=== PATIENT | female | born 1960 | race Caucasian/White ===

== ENCOUNTER 2017-12-14 20:42 | Observation (INO) | payer BC, OTHER, SELFPAY ==
[2017-12-14] MEDS ORDERED: NA CHLORIDE 0.9% 1,000 ML ONE (21:15)
[2017-12-14] MEDS ORDERED: THIAMINE 200 MG/2 ML INJ ONE (21:15)
[2017-12-14] MEDS ORDERED: FOLIC ACID 5 MG/ML VIAL ONE (21:16)
[2017-12-14 21:20] LABS: Absolute Lymphocytes (CBC) 1.8 K/uL (0.7-4.9); Absolute Monocytes 0.4 K/uL (0.1-1.3); Absolute Neutrophil 5.3 K/uL (1.8-8.0); Basophils % 0.6 % (0-1.3); Eosinophils % 1.1 % (0-4.4); Hematocrit 43.6 % (36.0-45.0); Lymphocytes % 23.5 % (15.3-44.8); MCH 29.4 pg (27.0-35.0); MPV 9.2 fL (7.6-11.3); Monocytes % 5.5 % (3.3-12.3); RBC Red Blood Cell Count 4.79 M/uL (3.86-4.86)
[2017-12-14 21:30] LABS: Bicarbonate 19 mEq/L (21-31); Glucose Level 106 mg/dL (65-120); Potassium 4.6 mEq/L (3.6-5.0); Sodium Level 139 mEq/L (135-145)
[2017-12-14 21:36] LABS: ALT/SGPT 18 IU/L (10-60); AST/SGOT 20 IU/L (10-42); Albumin 4.3 g/dL (3.2-5.5); Alkaline Phosphatase 102 IU/L (42-121); BUN Blood Urea Nitrogen 25 mg/dL (6-20); Bilirubin Direct 0.1 mg/dL (0-0.2); Bilirubin Total 0.4 mg/dL (0.3-1.2); Protein, Total 7.7 g/dL (6.0-8.3)
[2017-12-14 21:38] LABS: Alcohol Serum/Plasma < 10 mg/dl; Salicylates Level < 4.0 mg/dl (<30)
--- NOTE | 2017-12-14 21:39 | RAD REPORT ---
EXAM DESCRIPTION: CT - Head Brain Wo Cont - 12/14/2017 9:29 pm CLINICAL HISTORY: Altered consciousness. COMPARISON: None. TECHNIQUE: All CT scans are performed using dose optimization technique as appropriate and may inclu de automated exposure control or mA/KV adjustment according to patient size. FINDINGS: No intracranial hemorrhage, hydrocephalus or extra-axial fluid collection.No areas of brai n edema or evidence of midline shift. The paranasal sinuses and mastoids are clear. The calvarium is intact. IMPRESSION: No acute intracranial abnormality.
--- NOTE | 2017-12-14 21:43 | RAD REPORT ---
EXAM DESCRIPTION: RAD - Chest Single View - 12/14/2017 9:32 pm CLINICAL HISTORY: Chest pain, altered consciousness. COMPARISON: None. FINDINGS: Portable technique limits examination quality. The lungs are grossly clear. The heart is normal in size. No displaced fractures. IMPRESSION: No acute intrathoracic process suspected.
[2017-12-14 21:46] LABS: Protime INR 0.91
[2017-12-14 22:02] LABS: CKMB Creatine Kinase MB 3.7 ng/ml (0.3-4.0)
[2017-12-14 22:46] LABS: Barbiturates NEGATIVE; Benzodiazepines NEGATIVE; Cocaine NEGATIVE; METHAMPHETAM NEGATIVE; Opiates NEGATIVE; Phencyclidine NEGATIVE; THC Cannibis NEGATIVE
[2017-12-14 23:05] LABS: Urine Blood NEGATIVE (NEG); Urine Glucose NEGATIVE (NEG); Urine Protein NEGATIVE (NEG); Urine pH 5.5 (5.0-7.0)
--- NOTE | 2017-12-15 00:18 | EDPHYS ---
Physician Documentation [facility] Name: Erna Momin Age: 57 yrs Sex: Female : 1960 Arrival Date: 12/14/2017 Time: 20:43 Bed 3 Private MD: ED Physician Alexis Huynh HPI: 12/14 21:11 This 57 yrs old Female presents to ER via Unassigned with complaints of kaitlin Possible Overdose. 21:11 The patient presents to the emergency department with a possible poisoning, unk. kaitlin Context: unk. Associated signs and symptoms: The patient has no apparent associated signs or symptoms. Severity of symptoms: At their worst the symptoms were moderate in the emergency department the symptoms are unchanged. The patient has not experienced similar symptoms in the past. Historical: - Allergies: 21:23 Sulfa (Sulfonamide Antibiotics); tl2 - Home Meds: 21:23 thyroid (pork) oral .5 GR oral once daily [Active]; gabapentin 300 mg oral cap 1 cap 3 tl2 times per day [Active]; benazepril 40 mg oral tab 1 tab once daily [Active]; Nitrostat 0.4 mg SL subl 1 tab [Active]; atenolol 25 mg Oral tab 1 tab 2 times per day [Active]; hydrochlorothiazide 12.5 mg Oral tab 1 tab once daily [Active]; omeprazole 20 mg Oral cpDR 1 cap once daily [Active]; - PMHx: 21:23 Hypertension; neuropathy; Hypothyroidism; Myocardial infarction; tl2 - PSHx: 21:23 Heart stents; tl2 - Immunization history:: Adult Immunizations up to date. - Social history:: Smoking status: Patient uses tobacco products, smokes one pack cigarettes per day. - Family history:: not pertinent. ROS: 21:11 Constitutional: Negative for fever, chills, and weight loss, Eyes: Negative for injury, kaitlin pain, redness, and discharge, ENT: Negative for injury, pain, and discharge, Neck: Negative for injury, pain, and swelling, Cardiovascular: Negative for chest pain, palpitations, and edema, Respiratory: Negative for shortness of breath, cough, wheezing, and pleuritic chest pain, Abdomen/GI: Negative for abdominal pain, nausea, vomiting, diarrhea, and constipation, Back: Negative for injury and pain, : Negative for injury, bleeding, discharge, and swelling, MS/Extremity: Negative for injury and deformity, Skin: Negative for injury, rash, and discoloration, Psych: Negative for depression, anxiety, suicide ideation, homicidal ideation, and hallucinations, Allergy/Immunology: Negative for hives, rash, and allergies, Endocrine: Negative for neck swelling, polydipsia, polyuria, polyphagia, and marked weight changes, Hematologic/Lymphatic: Negative for swollen nodes, abnormal bleeding, and unusual bruising. 21:11 Neuro: Positive for altered mental status, weakness. Exam: 21:11 Constitutional: This is a well developed, well nourished patient who is awake, alert, kaitlin and in no acute distress. Head/Face: Normocephalic, atraumatic. Eyes: Pupils equal round and reactive to light, extra-ocular motions intact. Lids and lashes normal. Conjunctiva and sclera are non-icteric and not injected. Cornea within normal limits. Periorbital areas with no swelling, redness, or edema. ENT: Nares patent. No nasal discharge, no septal abnormalities noted. Tympanic membranes are normal and external auditory canals are clear. Oropharynx with no redness, swelling, or masses, exudates, or evidence of obstruction, uvula midline. Mucous membranes moist. Neck: Trachea midline, no thyromegaly or masses palpated, and no cervical lymphadenopathy. Supple, full range of motion without nuchal rigidity, or vertebral point tenderness. No Meningismus. Chest/axilla: Normal chest wall appearance and motion. Nontender with no deformity. No lesions are appreciated. Cardiovascular: Regular rate and rhythm with a normal S1 and S2. No gallops, murmurs, or rubs. Normal PMI, no JVD. No pulse deficits. Respiratory: Lungs have equal breath sounds bilaterally, clear to auscultation and percussion. No rales, rhonchi or wheezes noted. No increased work of breathing, no retractions or nasal flaring. Abdomen/GI: Soft, non-tender, with normal bowel sounds. No distension or tympany. No guarding or rebound. No evidence of tenderness throughout. Back: No spinal tenderness. No costovertebral tenderness. Full range of motion. Female : Normal external genitalia. Skin: Warm, dry with normal turgor. Normal color with no rashes, no lesions, and no evidence of cellulitis. MS/ Extremity: Pulses equal, no cyanosis. Neurovascular intact. Full, normal range of motion. Psych: Awake, alert, with orientation to person, place and time. Behavior, mood, and affect are within normal limits. 21:11 Neuro: Orientation: is normal, appropriate for stated age, no acute changes, Mentation: slow to respond, Memory: is normal, appropriate for stated age, no acute changes, Cerebellar function: is grossly normal, Motor: moves all fours, Sensation: is normal, no obvious gross deficits, appropriate Gait: not tested. Babinski testing is normal. Vital Signs: 21:00 BP 159 / 94; Pulse 83; Resp 18; Temp 97.3; Pulse Ox 100% on R/A; Weight 72.57 kg; tl2 Height 5 ft. 3 in. (160.02 cm); Pain 0/10; 22:28 BP 146 / 81; Pulse 85; Resp 20; Pulse Ox 99% on R/A; tl2 23:27 BP 152 / 111; Pulse 73; Resp 18; Pulse Ox 100% on R/A; tl2 12/15 01:36 BP 177 / 93; Pulse 76; Resp 16; Pulse Ox 99% on R/A; Pain 0/10; tl1 12/14 21:00 Body Mass Index 28.34 (72.57 kg, 160.02 cm) tl2 MDM: 12/14 20:50 Patient medically screened. [facility] 21:13 Data reviewed: vital signs, nurses notes, lab test result(s), EKG, radiologic studies, [facility] CT scan, plain films. 12/14 20:55 Order name: Acetaminophen; Complete Time: 22: [facility] 12/14 20:55 Order name: Basic Metabolic Panel; Complete Time: 22: [facility] 12/14 20:55 Order name: CBC with Diff; Complete Time: 22: [facility] 12/14 20:55 Order name: ETOH Level; Complete Time: 22: [facility] 12/14 20:55 Order name: Hepatic Function; Complete Time: 22: [facility] 12/14 20:55 Order name: PT-INR; Complete Time: 22:09 [facility] 12/14 20:55 Order name: Ptt, Activated; Complete Time: 22: [facility] 12/14 20:55 Order name: Salicylate; Complete Time: 22: [facility] 12/14 20:55 Order name: Urine Drug Screen; Complete Time: 00:13 1 12/14 21:11 Order name: BNP; Complete Time: 00:13 [facility] 12/14 21:11 Order name: Ckmb; Complete Time: 22:09 [facility] 12/14 21:11 Order name: CPK; Complete Time: 22:09 [facility] 12/14 21:11 Order name: Magnesium; Complete Time: 22:09 [facility] 12/14 21:11 Order name: Troponin (emerg Dept Use Only); Complete Time: 22: [facility] 12/14 20:55 Order name: EKG; Complete Time: 20:55 [facility] 12/14 20:55 Order name: EKG - Nurse/Tech; Complete Time: 20:55 [facility] 12/14 20:55 Order name: IV Saline Lock; Complete Time: 20:56 [facility] 12/14 20:55 Order name: Labs collected and sent; Complete Time: 20:56 [facility] 12/14 20:55 Order name: Urine Dipstick-Ancillary (obtain specimen); Complete Time: 22:27 [facility] 12/14 21:11 Order name: XRAY Chest (1 view); Complete Time: 22:09 [facility] 12/14 21:11 Order name: Cardiac monitoring; Complete Time: 21:29 [facility] 12/14 21:11 Order name: O2 Per Protocol; Complete Time: 21:28 [facility] 12/14 21:11 Order name: O2 Sat Monitoring; Complete Time: 21:28 [facility] 12/14 21:11 Order name: Urine Culture [facility] 12/14 21:11 Order name: CT Head Brain wo Cont; Complete Time: 22:09 [facility] 12/14 22:36 Order name: Urine Dipstick--Ancillary (enter results); Complete Time: 00:13 2 12/14 22:29 Order name: Straight Cath; Complete Time: 22:29 tl2 Administered Medications: 21:18 Drug: foLIC Acid 1 mg Route: IVPB; Site: right antecubital; tl1 23:21 Follow up: IV Status: Completed infusion tl1 21:18 Drug: NS 0.9% 1000 ml Route: IV; Rate: 1000 ml; Site: right antecubital; tl1 23:21 Follow up: IV Status: Completed infusion tl1 21:19 Drug: Thiamine 100 mg Route: IV; Rate: bolus; Site: right antecubital; tl1 23:21 Follow up: IV Status: Completed infusion tl1 12/15 00:24 Drug: Aspirin 81 mg Route: PO; tl1 01:37 Follow up: Response: No adverse reaction; No change in condition tl1 Disposition: 12/15/17 00:16 Hospitalization ordered by Bibiana Adams for Observation. Preliminary diagnosis is Altered mental status, unspecified. - Bed requested for Telemetry/MedSurg (observation). - Status is Observation. tl1 - Condition is Stable. - Problem is new. - Symptoms have improved. UTI on Admission? No Signatures: Dispatcher [employer] EDHilda Swan RN Alexis Bullock MD MD cha Lasagna, Tonya, RN RN tl1 Sammie Bernal RN RN tl2 Corrections: (The following items were deleted from the chart) 01:04 00:16 Hospitalization Ordered by Bibiana Adams MD for Observation. Preliminary kl diagnosis is Altered mental status, unspecified. Bed requested for Telemetry/MedSurg (observation). Status is Observation. Condition is Stable. Problem is new. Symptoms have improved. UTI on Admission? No. kaitlin 02:54 01:04 12/15/2017 00:16 Hospitalization Ordered by Bibiana Adams MD for Observation. tl1 Preliminary diagnosis is Altered mental status, unspecified. Bed requested for Telemetry/MedSurg (observation). Status is Observation. Condition is Stable. Problem is new. Symptoms have improved. UTI on Admission? No. kl
--- NOTE | 2017-12-15 00:18 | ER ---
Nurse's Notes [facility] Name: Erna Momin Age: 57 yrs Sex: Female : 1960 Arrival Date: 12/14/2017 Time: 20:43 Bed 3 Private MD: Diagnosis: Altered mental status, unspecified Presentation: 12/14 21:16 Presenting complaint: EMS states: found pt in bed and he was unable to wake her tl2 up. EMS woke her up with sternal rubs. Pt was very drowsy. Pt was responsive to verbal stimuli in triage but stated she did not know why she felt so drowsy and denied taking any abnormal medications. Pt AOx4 and could answer questions appropriately. Transition of care: patient was not received from another setting of care. Onset of symptoms was December 14, 2017 at 19:00. Initial Sepsis Screen: Does the patient meet any 2 criteria? No. Patient's initial sepsis screen is negative. Does the patient have a suspected source of infection? No. Patient's initial sepsis screen is negative. Care prior to arrival: None. 21:16 Method Of Arrival: EMS: [facility] tl2 21:16 Acuity: MARIA EUGENIA 3 tl2 Triage Assessment: 21:00 General: Appears in no apparent distress. Behavior is cooperative, appropriate for age, tl2 drowsy. Pain: Denies pain. Neuro: Level of Consciousness is awake, obeys commands, lethargic, Oriented to person, place, time, situation, Speech is normal. Cardiovascular: Denies chest pain. Respiratory: Airway is patent Respiratory effort is even, unlabored, Respiratory pattern is regular, symmetrical. GI: No signs and/or symptoms were reported involving the gastrointestinal system. : No signs and/or symptoms were reported regarding the genitourinary system. Derm: Skin is pink, warm \T\ dry. Historical: - Allergies: 21:23 Sulfa (Sulfonamide Antibiotics); tl2 - Home Meds: 21:23 thyroid (pork) oral .5 GR oral once daily [Active]; gabapentin 300 mg oral cap 1 cap 3 tl2 times per day [Active]; benazepril 40 mg oral tab 1 tab once daily [Active]; Nitrostat 0.4 mg SL subl 1 tab [Active]; atenolol 25 mg Oral tab 1 tab 2 times per day [Active]; hydrochlorothiazide 12.5 mg Oral tab 1 tab once daily [Active]; omeprazole 20 mg Oral cpDR 1 cap once daily [Active]; - PMHx: 21:23 Hypertension; neuropathy; Hypothyroidism; Myocardial infarction; tl2 - PSHx: 21:23 Heart stents; tl2 - Immunization history:: Adult Immunizations up to date. - Social history:: Smoking status: Patient uses tobacco products, smokes one pack cigarettes per day. - Family history:: not pertinent. Screenin:27 Abuse screen: Denies threats or abuse. Nutritional screening: No deficits noted. tl2 Tuberculosis screening: No symptoms or risk factors identified. Fall Risk Gait- Weak (10 pts.). Assessment: 21:00 General: see triage assessment. General:. tl2 22:28 Reassessment: Patient appears in no apparent distress at this time. No changes from tl2 previously documented assessment. Patient and/or family updated on plan of care and expected duration. Pain level reassessed. 23:27 Reassessment: Patient appears in no apparent distress at this time. Pt sleeping, awakes tl2 to verbal stimuli but still appears confused. 12/15 01:32 Reassessment: Patient and/or family updated on plan of care and expected duration. Pain tl1 level reassessed. Patient states feeling better. Patient states symptoms have improved. Neuro: Level of Consciousness is lethargic. 02:36 Reassessment: Patient appears in no apparent distress at this time. Patient and/or tl1 family updated on plan of care and expected duration. Pain level reassessed. Patient is alert, oriented x 3, equal unlabored respirations, skin warm/dry/pink. Patient states feeling better. Patient states symptoms have improved. pt is awake and alert and ambulated to the bathroom without assistance. Vital Signs: 12/14 21:00 BP 159 / 94; Pulse 83; Resp 18; Temp 97.3; Pulse Ox 100% on R/A; Weight 72.57 kg; tl2 Height 5 ft. 3 in. (160.02 cm); Pain 0/10; 22:28 BP 146 / 81; Pulse 85; Resp 20; Pulse Ox 99% on R/A; tl2 23:27 BP 152 / 111; Pulse 73; Resp 18; Pulse Ox 100% on R/A; tl2 12/15 01:36 BP 177 / 93; Pulse 76; Resp 16; Pulse Ox 99% on R/A; Pain 0/10; tl1 12/14 21:00 Body Mass Index 28.34 (72.57 kg, 160.02 cm) tl2 Vitals: 12/14 22:28 Cardiac Rhythm Assessment Regular Sinus rhythm. tl2 ED Course: 20:43 Patient arrived in ED. ds1 20:50 Alexis Huynh MD is Attending Physician. kaitlin 21:00 Arm band placed on right wrist. tl2 21:18 Triage completed. tl2 21:27 Patient has correct armband on for positive identification. Placed in gown. Bed in low tl2 position. Call light in reach. Side rails up X 1. Adult w/ patient. 21:27 Maintain EMS IV. Dressing intact. Site clean \T\ dry. Gauge \T\ site: 20 g R FA. tl 2 21:28 Sammie Bernal RN is Primary Nurse. tl2 21:29 CT Head Brain wo Cont In Process Unspecified. EDMS 21:32 X-ray completed. Portable x-ray completed in exam room. Patient tolerated procedure bb2 well. 21:32 XRAY Chest (1 view) In Process Unspecified. EDMS 22:29 Straight cath inserted, using sterile technique, 16 Fr. Specimen obtained. Returned tl2 clear yellow urine. Patient tolerated well. 12/15 00:16 Bibiana Adams MD is Hospitalizing Provider. kaitlin 01:33 No provider procedures requiring assistance completed. Patient admitted, IV remains in tl1 place. Administered Medications: 12/14 21:18 Drug: foLIC Acid 1 mg Route: IVPB; Site: right antecubital; tl1 23:21 Follow up: IV Status: Completed infusion tl1 21:18 Drug: NS 0.9% 1000 ml Route: IV; Rate: 1000 ml; Site: right antecubital; tl1 23:21 Follow up: IV Status: Completed infusion tl1 21:19 Drug: Thiamine 100 mg Route: IV; Rate: bolus; Site: right antecubital; tl1 23:21 Follow up: IV Status: Completed infusion tl1 12/15 00:24 Drug: Aspirin 81 mg Route: PO; tl1 01:37 Follow up: Response: No adverse reaction; No change in condition tl1 Outcome: 00:16 Decision to Hospitalize by Provider. kaitlin 02:37 Admitted to Med/surg accompanied by tech, via wheelchair, with chart, Report called to tl1 Jolene Gaona [employer] 02:37 Condition: good 02:37 Instructed on the need for admit. 02:54 Patient left the ED. tl1 Signatures: Dispatcher [employer] Alexis Stone MD MD cha Sanford, Demi dsMeryl Patel RN RN tl1 Sammie Bernal RN RN tl2 Hortensia Leal 2
[2017-12-15] MEDS ORDERED: ASPIRIN 81 MG CHEWABLE TABLET ONE (00:26)
--- NOTE | 2017-12-15 01:17 | P.HP ---
Certification for Inpatient Patient admitted to: Observation With expected LOS: <2 Midnights Practitioner: I am a practitioner with admitting privileges, knowledge of patient current condition, hospital course, and medical plan of care. Services: Services provided to patient in accordance with Admission requirements found in Title 42 Section 412.3 of the Code of Federal Regulations Patient History Date of Service: 12/15/17 Reason for admission: AMS History of Present Illness: Ms Peña is a 57 years old woman with history of HTN, hypothyroidism, neuropathy , CAD. Last night, she was found by her on the bed, and he was unable to wake her up. 911 was called, when EMS arrived, found the patient obtunded, very difficult to arouse. She finally responded to the sternal rub. Then she was transferred to ER. During her stay in ED, she gradually improved her mentation. At my encounter she was sleepy but easy to wake up, she states that possible took more Gabapentin my mistake. She denied any history of fever, chills, chest pain, SOB, nausea or vomiting. She also denied any focal weakness , numbness or tingling. Allergies Unable to Assess Allergy (Unverified 12/15/17 01:11) - Past Medical/Surgical History -: HTN -: CAD -: Neuropathy -: Hypotrhyroidism -: coronary stent - Family History Family History: Reviewed- Non-Contributory - Social History Smoking Status: Heavy Tobacco smoker (>10 cigarettes/day) Counseled patient to stop smoking for: less than 10 minutes CD- Drugs: No Caffeine use: Yes Place of Residence: Home Review of Systems 10-point ROS is otherwise unremarkable Physical Examination - Physical Exam General: In no apparent distress, Other (obtunded.) HEENT: Atraumatic, PERRLA, Mucous membr. moist/pink, EOMI, Sclerae nonicteric Neck: Supple, 2+ carotid pulse no bruit, No LAD, Without JVD or thyroid abnormality Respiratory: Clear to auscultation bilaterally, Normal air movement Cardiovascular: Regular rate/rhythm, Normal S1 S2 Gastrointestinal: Normal bowel sounds, No tenderness Musculoskeletal: No tenderness Integumentary: No rashes Neurological: Normal strength at 5/5 x4 extr, Normal tone, Normal affect, Abnormal speech (slurred) Lymphatics: No axilla or inguinal lymphadenopathy - Studies Laboratory Data (last 24 hrs) 12/14/17 21:00: Magnesium 2.0 12/14/17 21:00: B-Natriuretic Peptide 132 H 12/14/17 21:00: PT 10.7, INR 0.91, APTT 21.3 L 12/14/17 21:00: WBC 7.7, Hgb 14.1, Hct 43.6, Plt Count 153 12/14/17 21:00: Sodium 139, Potassium 4.6, BUN 25 H, Creatinine 0.98, Glucose 106, Total Bilirubin 0.4, AST 20, ALT 18, Alkaline Phosphatase 102 Assessment and Plan - Problems (Diagnosis) (1) Acute encephalopathy Current Visit: Yes Status: Acute (2) HTN (hypertension) Current Visit: Yes Status: Acute Qualifiers: Hypertension type: essential hypertension Qualified Code(s): I10 - Essential (primary) hypertension (3) Hypothyroidism Current Visit: Yes Status: Acute Qualifiers: Hypothyroidism type: unspecified Qualified Code(s): E03.9 - Hypothyroidism , unspecified (4) CAD (coronary artery disease) Current Visit: Yes Status: Acute Qualifiers: Coronary Disease-Associated Artery/Lesion type: [place] artery [place] vs. transplanted heart: [place] heart Associated angina: without angina Qualified Code(s): I25.10 - Atherosclerotic heart disease of [place] coronary artery without angina pectoris - Plan The patient will be admitted to the hospital due to acute encephalopathy. Lab work shows normal WBC count, no fever, normal UA, no acute infiltrate on CXR. CT head without acute abnormalities. This episode, is highly suspected to be secondary to medication overdose, possible Gabapentin. Her mentation is defetively already improved. Will continue IV normal saline, neurochecks, fall precautions. - Advance Directives Does patient have a Living Will: No Does patient have a Durable POA for Healthcare: No - Code Status/Comfort Care Code Status Assessed: Yes Code Status: Full Code
[2017-12-15] MEDS ORDERED: ACETAMINOPHEN 500 MG TAB PO PRN (02:13)
[2017-12-15] MEDS ORDERED: ONDANSETRON 4 MG/2 ML VIAL IV PRN (02:13)
[2017-12-15] MEDS: NA CHLORIDE 0.9% 1,000 ML IV SCH ×3 (03:20→20:19)
[2017-12-15 04:33] LABS: Absolute Lymphocytes (CBC) 1.9 K/uL (0.7-4.9); Absolute Monocytes 0.7 K/uL (0.1-1.3); Absolute Neutrophil 5.7 K/uL (1.8-8.0); Basophils % 0.5 % (0-1.3); Hematocrit 36.4 % (36.0-45.0); Lymphocytes % 22.3 % (15.3-44.8); MCH 29.7 pg (27.0-35.0); MCV 90.2 fL (80-100); Monocytes % 8.3 % (3.3-12.3); RBC Red Blood Cell Count 4.04 M/uL (3.86-4.86)
[2017-12-15 05:06] LABS: Albumin 3.5 g/dL (3.2-5.5); Bilirubin Total 0.4 mg/dL (0.3-1.2); Potassium 4.2 mEq/L (3.6-5.0); Protein, Total 6.3 g/dL (6.0-8.3)
--- NOTE | 2017-12-15 06:30 | EKG ---
Test Date: 2017-12-14 Test Time: 20:52:01 Plant Puller: CINTHIA MEASUREMENT RESULTS: Intervals: Rate: 79 SD: 176 QRSD: 74 QT: 374 QTc: 428 [place]: P: 62 SD: 176 QRS: 4 T: 24 INTERPRETIVE STATEMENTS: Sinus rhythm with premature atrial complexes Otherwise normal ECG No previous ECG available for comparison Electronically Signed On 12-15-17 06:29:57 CDT by Augustin Solis
[2017-12-15] MEDS: ASPIRIN PO SCH (09:00)
[2017-12-15] MEDS ORDERED: THYROID 30 MG PO SCH (09:00)
[2017-12-15] MEDS ORDERED: BENAZEPRIL HCL 40 MG PO SCH (09:00)
[2017-12-15] MEDS ORDERED: ATENOLOL 25 MG TAB PO SCH (09:00)
[2017-12-15] MEDS ORDERED: HOME MED 1 EA UNK (Omeprazole [Omeprazole] 20 MG) PO SCH (09:00)
[2017-12-15] MEDS: ACETAMINOPHEN PO SCH (09:00)
[2017-12-15] MEDS: CAFFEINE PO SCH (09:00)
[2017-12-15] MEDS ORDERED: THYROID PORK 180 MG PO SCH (09:00)
[2017-12-15] MEDS: SENOSIDES 8.6 MG TAB PO SCH (10:10)
[2017-12-15] MEDS: TICAGRELOR 90 MG TABLET PO SCH ×2 (10:10→20:17)
[2017-12-15] MEDS: ENOXAPARIN 40 MG/0.4 ML SQ SCH (10:10)
[2017-12-15] MEDS: ASPIRIN EC 81 MG TAB PO SCH (13:17)
--- NOTE | 2017-12-15 13:37 | PN ---
Date of Progress Note: 12/15/2017 Subjective: The patient is seen and examined. Chart reviewed and case discussed with RN. The patie nt's mental status is improving. Per , she is close to being back to her baseline. Review of Systems: Negative except as above. Medications: Reviewed. Physical Examination: Vital Signs: Temperature 97.3, heart rate 84, blood pressure 133/71, respirations 16, O2 96% on room air. General: Awake, alert, oriented x3. No acute distress. The patient does have some word-finding dif ficulty. CV: S1, S2. No murmurs. Regular rate and rhythm. Peripheral pulses present. Respiratory: Moving air well bilaterally. No wheezing. Gastrointestinal: Abdomen is soft, nontender, nondistended. Positive bowel sounds. Extremities: No clubbing, cyanosis, or edema. Neurologic: Cranial nerves 2 through 12 intact grossly. Muscle strength 5/5 upper and lower left ex tremities. Right upper extremity is 4+/5. Right lower extremity is 5/5 strength. Sensation intact to light touch. Laboratory Data: Sodium 142, potassium 4.2, chloride 117, CO2 of 19, BUN 21, creatinine 0.79, glucos e 85, calcium 9.6. WBC 8.5, H and H 12 and 36.4, platelets 141. UDS is negative. Urine culture is pending. Assessment And Plan: A 57-year-old female with: 1.Acute metabolic encephalopathy, likely related to gabapentin as the patient had accidentally took more than her usual dose. This medication was recently started may be the culprit in causing her alt ered mental status. However, given her word-finding difficulty and partial weakness in the right arm , stroke cannot be ruled out. Head CT scan initially was negative. Unfortunately, MRI is not availa ble over the weekend and Neurology is not call. The patient was recommended to be transferred to [facility] for higher level of care. However, the patient refused at this time. She understands the risks that she might be having an acute stroke and she understands that there is no Neurology available. She wishes to stay in this hospital and undergo prophylactic treatment. She understands that this ma y result in adverse outcome. present at the bedside, rounded with charge nurse, Gustabo. 2.Transient ischemic attack, possible rule out cerebrovascular accident. We will start on stroke gu idelines. Unfortunately, as mentioned above MRI and Neurology available. We will obtain carotid ult rasound and echocardiogram. 3.Essential hypertension. We will allow permissive hypertension due to possible stroke. 4.Hypothyroidism. We will continue home medications. 5.Coronary artery disease [place] artery and [place] heart without angina, stable. 6.Nicotine dependence with cigarette smoking, counseled. 7.Neuropathy. We will hold gabapentin at this time. Continue neuro checks. 8.Gastrointestinal and deep venous thrombosis prophylaxis with PPI and Lovenox. SA/MODL Voice ID: [id number] Report ID: [id number]
--- NOTE | 2017-12-15 15:19 | RAD REPORT ---
EXAM DESCRIPTION: MICHELLE Puga CP - 12/15/2017 3:06 pm CLINICAL HISTORY: CVA COMPARISON: None. TECHNIQUE: Real-time sonographic evaluation of both carotid systems was performed. Doppler interroga tion was performed with waveform tracing bilaterally. FINDINGS: Normal high resistance waveforms are noted in both external carotid arteries. The common c arotid arteries and internal carotid arteries show normal low resistance waveforms. Mild plaquing changes are present in the right internal carotid artery. No significant luminal narrow ing. Left carotid bulb plaquing changes are more prominent with focal calcified plaque causing some n arrowing of the vessel lumen. Peak systolic and end diastolic velocity values and the ICA/CCA ratios are in the non-hemodynamically significant range. Antegrade flow seen in both vertebral arteries. Velocity values and ratios were recorded and are retained in the patient's imaging records. IMPRESSION: Minimal right internal carotid artery atherosclerotic plaquing. Focally prominent calcif ied plaque in the left bulb. On visual inspection and based on velocity values and ratios, no significant stenosis seen.
[2017-12-15] MEDS ORDERED: ATORVASTATIN 40 MG TAB PO SCH (21:00)
[2017-12-16 04:52] LABS: Absolute Lymphocytes (CBC) 2.1 K/uL (0.7-4.9); Absolute Monocytes 0.8 K/uL (0.1-1.3); Absolute Neutrophil 6.2 K/uL (1.8-8.0); Basophils % 0.5 % (0-1.3); Hematocrit 35.5 % (36.0-45.0); Lymphocytes % 22.1 % (15.3-44.8); MCH 30.3 pg (27.0-35.0); MCV 89.4 fL (80-100); MPV 9.2 fL (7.6-11.3); Monocytes % 8.9 % (3.3-12.3); RBC Red Blood Cell Count 3.97 M/uL (3.86-4.86)
[2017-12-16 05:17] LABS: ALT/SGPT 14 IU/L (10-60); AST/SGOT 14 IU/L (10-42); Albumin 3.2 g/dL (3.2-5.5); Alkaline Phosphatase 79 IU/L (42-121); BUN Blood Urea Nitrogen 12 mg/dL (6-20); Bicarbonate 20 mEq/L (21-31); Bilirubin Total 0.7 mg/dL (0.3-1.2); Glucose Level 85 mg/dL (65-120); Potassium 3.4 mEq/L (3.6-5.0); Protein, Total 5.7 g/dL (6.0-8.3); Sodium Level 139 mEq/L (135-145)
[2017-12-16] MEDS ORDERED: THYROID 30 MG TAB PO SCH ×2 (06:00)
[2017-12-16] MEDS ORDERED: PANTOPRAZOLE 40MG TABLET PO SCH (07:30)
[2017-12-16] MEDS: NA CHLORIDE 0.9% 1,000 ML IV SCH (08:13)
[2017-12-16] MEDS: CAFFEINE PO SCH (09:00)
[2017-12-16] MEDS: TICAGRELOR 90 MG TABLET PO SCH (09:00)
[2017-12-16] MEDS ORDERED: BENAZEPRIL 20 MG TAB PO SCH (09:00)
[2017-12-16] MEDS: ASPIRIN PO SCH (09:00)
[2017-12-16] MEDS: ACETAMINOPHEN PO SCH (09:00)
[2017-12-16] MEDS: ASPIRIN EC 81 MG TAB PO SCH (09:00)
[2017-12-16] MEDS: SENOSIDES 8.6 MG TAB PO SCH (09:00)
[2017-12-16] MEDS: ENOXAPARIN 40 MG/0.4 ML SQ SCH (09:00)
--- NOTE | 2017-12-16 09:19 | RAD REPORT ---
EXAM DESCRIPTION: CT - Head Brain Wo Cont - 12/16/2017 8:47 am CLINICAL HISTORY: Alteration of consciousness/memory loss COMPARISON: November 2016 TECHNIQUE: Computed axial tomography of the head was obtained. IV contrast was not requested. All CT scans are performed using dose optimization technique as appropriate and may include automated exposure control or mA/KV adjustment according to patient size. FINDINGS: An intracranial bleed is not seen . The ventricles are normal in caliber. No extra-axial fluid collection is noted. Fluid within the sinuses/ mastoids is not seen. IMPRESSION: No acute intracranial abnormality is seen. If patient's symptoms persist MRI of the bra in would be recommended.
--- NOTE | 2017-12-16 15:09 | DS ---
Date of Discharge: 12/16/2017 Admitting Diagnoses: 1.Acute metabolic encephalopathy. 2.Essential hypertension. 3.Hypothyroidism. 4.Coronary artery disease [place] artery and [place] heart without angina. Discharge Diagnoses: 1.Acute metabolic encephalopathy, resolved, likely secondary to gabapentin overdose. 2.Possible transient ischemic attack, rule out cerebrovascular accident. Repeat head CT scan negati ve. The patient will need outpatient MRI and Neurology evaluation. 3.Mild carotid artery plaquing. We will continue with statin. 4.Essential hypertension, stable. 5.Hypothyroidism, stable. 6.Coronary artery disease [place] artery and [place] heart without angina, stable. 7.Nicotine dependence with cigarette smoking, counseled. 8.Neuropathy. Discontinue gabapentin. Hospital Course: The patient is a 57-year-old female who came into the hospital for altered mental s tatus, difficult to arouse, obtunded. The patient gradually started waking up. It is possible that the patient took more gabapentin by mistake, which is a new medication for her, for her neuropathy. The patient initially had improvement in her mental status, however, still has some word-finding diff iculty, had some asymmetric strength in her right upper extremity. The patient was attempted to be t ransferred to [facility] for a higher level of care as Neurology and MRI services unavail able. The patient and , however, declined transfer. They understand the risks associated wit h delaying treatment and not having Neurology and MRI evaluation. The patient understood the risks a nd wished to stay. The patient was awake, alert, and oriented at the time of the decision. also present at the bedside. Charge nurse also present. The patient had improvement in her mental s tatus and condition. Her word-finding difficulty resolved. She was much more alert and is able to g et up and move around. She did not have any further weakness in her upper extremity. She felt that her gown initially was holding her arm back during the examination. Her strength was symmetric. The patient had repeat head CT scan done, initial one was negative. Repeat was also negative. The wallace ent had carotid ultrasound done, which did show some plaquing in the bulb, however, no hemodynamicall y significant stenosis and minimal right internal carotid plaquing. The patient was started on stati n and aspirin. The patient also on Brilinta for heart disease. Echocardiogram unable to be done due to the weekend. The patient was then cleared for discharge as she was able to ambulate without any assist. Has resolution of her symptoms. She understands that she needs to follow up with the neurol ogist as an outpatient next week for MRI of the brain to rule out CVA, and to discontinue her gabapen tin altogether. She may need a different medication for her neuropathy, which at this time is not si gnificantly bothering her at all. The patient was then discharged home in a stable condition. Activity: As tolerated. Medications: As per medication reconciliation list. Followup: Follow up with primary care physician in 2 days. Follow up with neurologist, Dr. Hoang in 1 week. Return to ER for worsening condition. Diet: Heart healthy. Physical Examination: General: Awake, alert, oriented, no acute distress. CV: S1, S2. No murmurs. Respiratory: Moving air well bilaterally. No wheezing. Abdomen: Soft, nontender, nondistended. Positive bowel sounds. Extremities: No clubbing, cyanosis, edema. Neurologic: Nonfocal. Cranial nerves 2-12 intact grossly. Upper and lower extremity strength 5/5 b ilaterally. Speech is normal. No word-finding difficulty. No facial asymmetry. SA/MODL Voice ID: [id number] Report ID: [id number]
== END 2017-12-16 11:11 | disposition home or self-care (01) ==
LOC: ER 20:42 → ERHOLD 12-15 00:45 → 2ND 12-15 02:08
PROVIDERS: ADMIT Internal Medicine; ATTEND Internal Medicine
DX: G93.41 Metabolic encephalopathy (principal); I65.29 Occlusion and stenosis of unspecified carotid artery; I10 Essential (primary) hypertension; E03.9 Hypothyroidism, unspecified; I25.10 Atherosclerotic heart disease of native coronary artery without angina pectoris; F17.210 Nicotine dependence, cigarettes, uncomplicated; G62.9 Polyneuropathy, unspecified
CPT/HCPCS: 36415; 51702; 70450; 71045; 80048; 80053; 80076; 80307; 80320; 80329; 81003; 82550; 82553; 83735; 83880; 84132; 84484; 85025; 85610; 85730; 87086; 87088; 93005; 93880; 96361; 96365; 96368; 99285; G0378; J1650; J3411; J7030

== ENCOUNTER 2025-03-08 21:27 | Emergency (ER) | payer OTHER ==
[2025-03-08 23:10] LABS: Sqamous Epithelial None Seen /HPF (None Seen); Urine Culture Reflex Order REFLEXED; Urine Microscopic Reflex YN NO UMIC
[2025-03-08 23:20] LABS: Absolute Lymphocytes (CBC) 1.8 K/uL (0.7-4.9); Hematocrit 30.2 % (36.0-45.0); Hemoglobin 10.3 g/dL (12.0-15.0); MCH 32.5 pg (27.0-35.0); MCHC 34.0 g/dL (32.0-36.0); MCV 95.6 fL (80-100); MPV 9.2 fL (7.6-11.3); Nucleated RBC Absolute Count 0.0 (0-0); Nucleated Red Blood Cells % 0.0 % (0-0); RBC Red Blood Cell Count 3.17 M/uL (3.86-4.86); White Blood Count 7.30 thou/uL (4.3-10.9)
[2025-03-08 23:31] LABS: ALT/SGPT 17.0 U/L (13-56); AST/SGOT 13.0 U/L (15-37); Albumin 3.3 g/dL (3.4-5.0); Albumin/Globulin Ratio 1.0 (1.1-1.8); Alkaline Phosphatase 59.0 U/L (45-117); Anion Gap 7.0 mEq/L (5.0-15.0); BUN Blood Urea Nitrogen 21.0 mg/dL (7-18); Globulin 3.2 g/dL (2.3-3.5); Glucose Level 124.0 mg/dL (74-106); Potassium 4.0 mEq/L (3.5-5.1)
--- NOTE | 2025-03-09 01:20 | ER ---
Nurse's Notes [facility] Name: Erna Momin Age: 64 yrs Sex: Female : 1960 Arrival Date: 03/08/2025 Time: 21:27 Bed 2 Private MD: Diagnosis: Hematuria, unspecified;UTI/ Urinary tract infection, site not specified Presentation: 03/08 21:58 Chief complaint: Patient states: I have been urinating blood with clots for the past 3 jb4 weeks and today I could not urinate. I think there is a clot blocking it. Coronavirus screen: At this time, the client does not indicate any symptoms associated with coronavirus-19. Ebola Screen: No symptoms or risks identified at this time. Initial Sepsis Screen: Does the patient meet any 2 criteria? No. Patient's initial sepsis screen is negative. Does the patient have a suspected source of infection? No. Patient's initial sepsis screen is negative. Risk Assessment: Do you want to hurt yourself or someone else? Patient reports no desire to harm self or others. Onset of symptoms was March 08, 2025. Transition of care: patient was not received from another setting of care. 21:58 Method Of Arrival: Ambulatory jb4 21:58 Acuity: MARIA EUGENIA 2 jb4 Historical: - Allergies: 21:59 Sulfa (Sulfonamide Antibiotics); jb4 22:03 mycins; jb4 22:03 Zantac; jb4 22:03 Codeine; jb4 22:03 left bundle branche block; jb4 - PMHx: 21:59 Hypothyroidism; Myocardial infarction; Hypertension; neuropathy; jb4 - PSHx: 22:03 ; 2 heart stents; lap band; jb4 - Immunization history:: Adult Immunizations up to date. - Infectious Disease History:: Denies. - Social history:: Smoking status: Patient reports the use of cigarette tobacco products, smokes one pack cigarettes per day. Screenin/11 00:45 [facility] ED Fall Risk Assessment (Adult) History of falling in the last 3 months, cp4 including since admission No falls in past 3 months (0 pts) Confusion or Disorientation No (0 pts) Intoxicated or Sedated No (0 pts) Impaired Gait No (0 pts) Mobility Assist Device Used No (0 pt) Altered Elimination No (0 pt) Score/Fall Risk Level 0 - 2 = Low Risk Oriented to surroundings, Maintained a safe environment, Assessed \T\ reinforced patient's understanding of fall precautions, Hourly rounding (assess needs \T\ fall precautionary measures) done. Abuse screen: Denies threats or abuse. Denies injuries from another. Nutritional screening: No deficits noted. Tuberculosis screening: No symptoms or risk factors identified. Assessment: 00:45 General: Appears in no apparent distress. uncomfortable, Behavior is calm, cooperative, cp4 appropriate for age. Pain: Denies pain. Neuro: Level of Consciousness is awake, alert, obeys commands, Oriented to person, place, time, situation. Cardiovascular: Patient's skin is warm and dry. Respiratory: Airway is patent Respiratory effort is even, unlabored. GI: No signs and/or symptoms were reported involving the gastrointestinal system. : Urine is rory blood, Reports inability to void. EENT: No signs and/or symptoms were reported regarding the EENT system. Derm: No signs and/or symptoms reported regarding the dermatologic system. Musculoskeletal: No signs and/or symptoms reported regarding the musculoskeletal system. Vital Signs: 03/08 22:05 BP 124 / 79; Pulse 86; Resp 16; Temp 97.4(O); Pulse Ox 100% on R/A; Weight 68.95 kg jb4 (R); Height 5 ft. 2 in. ; 03/09 00:47 BP 109 / 68; Pulse 72; Resp 18; Pulse Ox 100% ; cp4 01:30 BP 121 / 79; Pulse 81; Resp 18; Pulse Ox 100% ; cp4 03/08 22:05 Body Mass Index 27.80 (68.95 kg, 157.48 cm) jb4 ED Course: 03/08 21:37 Patient arrived in ED. jj6 21:39 [facility]C [facility] kb 21:39 Néstor Noriega DO is Attending Physician. kb 21:59 Triage completed. jb4 21:59 Arm band placed on right wrist. jb4 22:48 Missed attempt(s): 20 gauge in right forearm. Bleeding controlled, band aid applied, sa1 catheter tip intact. 22:50 Inserted saline lock: 20 gauge forearm, using aseptic technique. Blood collected. sa1 Flushed with 10 mL NS. 22:58 Bibiana De La Rosa is Primary Nurse. cp4 23:19 CBC with Diff Sent. sa1 23:19 CMP Sent. sa1 23:33 Abdomen In Process Unspecified. EDMS 03/09 00:45 Placed in gown. Bed in low position. Call light in reach. Side rails up X2. cp4 00:45 No provider procedures requiring assistance completed. 3-way catheter inserted, using cp4 sterile technique, 16 Fr. 01:52 Provided Education on: uti. cp4 01:52 3-way catheter Returned bloody urine. Removed 3-way catheter. intact, bleeding cp4 controlled, No redness/swelling at site. Pressure dressing applied. Administered Medications: 01:52 Drug: Amoxicillin-Clavulanate PO 875 mg PO once Route: PO; cp4 01:52 Follow up: Response: No adverse reaction cp4 Medication: 00:45 VIS not applicable for this client. cp4 Outcome: 01:20 Discharge ordered by . kb 01:52 Discharged to home ambulatory, cp4 01:52 Condition: stable 01:52 Discharge instructions given to patient, family, Instructed on discharge instructions, follow up and referral plans. medication usage, Demonstrated understanding of instructions, follow-up care, medications, Prescriptions given X 1, 01:53 Patient left the ED. cp4 Signatures: Dispatcher [employer] EDMS Leticia Baker, BINDERY OPERATOR-C BINDERY OPERATOR-Elie Young, RN RN jb4 Laura Clark Christina cp4 Sultan Therese sa1
--- NOTE | 2025-03-09 01:20 | EDPHYS ---
Physician Documentation [facility] Name: Erna Momin Age: 64 yrs Sex: Female : 1960 Arrival Date: 03/08/2025 Time: 21:27 Bed 2 Private MD: ED Physician Néstor Noriega HPI: 03/08 21:44 This 64 yrs old Female presents to ER via Unassigned with complaints of Vaginal kb Bleeding. 21:44 Pt is a 64 year old female who presents for hematuria. States it started 3 weeks ago kb and she has been worked up for this. Next appt with Dr Garrido is towards the end of the month. States she has been passing clots, but today she stopped being able to urinate and her bladder feels full. 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 . Historical: - Allergies: 21:59 Sulfa (Sulfonamide Antibiotics); jb4 22:03 mycins; jb4 22:03 Zantac; jb4 22:03 Codeine; jb4 22:03 left bundle branche block; jb4 - PMHx: 21:59 Hypothyroidism; Myocardial infarction; Hypertension; neuropathy; jb4 - PSHx: 22:03 ; 2 heart stents; lap band; jb4 - Immunization history:: Adult Immunizations up to date. - Infectious Disease History:: Denies. - Social history:: Smoking status: Patient reports the use of cigarette tobacco products, smokes one pack cigarettes per day. ROS: 21:44 Constitutional: As per HPI kb Exam: 21:44 Constitutional: This is a well developed, well nourished patient who is awake, alert, kb and in no acute distress. Head/Face: Normocephalic, atraumatic. ENT: Moist Mucous membranes Cardiovascular: Regular rate Respiratory: Respirations even and unlabored. No increased work of breathing. Talking in full sentences Skin: Warm, dry with normal turgor. Normal color. MS/ Extremity: Pulses equal, no cyanosis. Neurovascular intact. Full, normal range of motion. Neuro: Awake and alert, GCS 15, oriented to person, place, time, and situation. Vital Signs: 22:05 BP 124 / 79; Pulse 86; Resp 16; Temp 97.4(O); Pulse Ox 100% on R/A; Weight 68.95 kg jb4 (R); Height 5 ft. 2 in. ; 03/09 00:47 BP 109 / 68; Pulse 72; Resp 18; Pulse Ox 100% ; cp4 01:30 BP 121 / 79; Pulse 81; Resp 18; Pulse Ox 100% ; cp4 03/08 22:05 Body Mass Index 27.80 (68.95 kg, 157.48 cm) jb4 MDM: 03/08 21:39 Medical Screening Exam initiated 03/09 01:17 Differential diagnosis: kidney stone, uti, cystitis, malignancy. Data reviewed: vital kb signs, nurses notes. Consideration of Admission/Observation Escalation of care including admission/observation considered. admission considered for acute kidney injury, but most recent creatinine 1.41. Pt will follow up with Dr Garrido. Historians other than the Patient: Spouse/Significant Other: spouse. External Records Reviewed: Outpatient labs: Creatinine on 02/10/25 1.41. Counseling: I had a detailed discussion with the patient and/or guardian regarding the historical points, exam findings, and any diagnostic results supporting the discharge/admit diagnosis, lab results, radiology results, the need for outpatient follow up, a urologist, nephrology, to return to the emergency department if symptoms worsen or persist or if there are any questions or concerns that arise at home. ED course: Urine cleared after irrigation, pt able to urinate. Pt expresses discomfort with high in place. Will remove prior to discharge. Pt will follow up with Dr Garrido for continued evaluation. 03/08 21:48 Order name: CBC with Diff; Complete Time: 23:23 kb 03/08 21:48 Order name: CMP; Complete Time: 23:31 kb 03/08 21:49 Order name: UA Rfx Roberto Cult if indicated; Complete Time: 23:15 kb 03/08 23:13 Order name: Urine Culture EDAL 03/08 23:33 Order name: Abdomen EDAL 03/08 21:48 Order name: IV Saline Lock; Complete Time: 22:59 kb 03/08 21:48 Order name: Labs collected and sent; Complete Time: 22:59 kb 03/08 21:48 Order name: High; Complete Time: 00:45 kb 03/08 21:48 Order name: Bladder Irrigation; Complete Time: 00:45 kb Administered Medications: 01:52 Drug: Amoxicillin-Clavulanate PO 875 mg PO once Route: PO; cp4 01:52 Follow up: Response: No adverse reaction cp4 Disposition: 01:30 I was immediately available on-site in the Emergency Department for consultation in the ms3 care of the patient. Disposition Summary: 03/09/25 01:20 Discharge Ordered Notes: Location: Home kb Condition: Stable kb Diagnosis - Hematuria, unspecified kb - UTI/ Urinary tract infection, site not specified kb Followup: kb - With: Emergency Department - When: As needed - Reason: Worsening of condition Followup: kb - With: Private Physician - When: 2 - 3 days - Reason: Recheck today's complaints, Continuance of care, Re-evaluation by your physician Discharge Instructions: - Discharge Summary Sheet kb - Urinary Tract Infection, Adult, [id number] kb Forms: - Medication Reconciliation Form kb - Antibiotic Education kb - Prescription Opioid Use kb - Patient Portal Instructions kb - Leadership Thank You Letter kb Prescriptions: - Augmentin 875-125 mg Oral Tablet - take 1 tablet ORAL route every 12 hours for 10 days; 20 tablet; Refills: 0, kb Product Selection Permitted Signatures: Dispatcher [employer] EDMS Leticia Baker, RATTLESNAKE FARMER-C RATTLESNAKE FARMER-Ckb Elie Brasher, RN RN jb4 Néstor Noriega DO DO ms3 Bibiana De La Rosa cp4 Corrections: (The following items were deleted from the chart) 03/08 21:49 21:49 CBC+H.LAB.BRZ ordered. EDMS EDMS 21:49 21:49 COMPREHENSIVE METABOLIC PANEL+C.LAB.BRZ ordered. EDMS EDMS 21:49 21:49 Abdomen Pelvis W Con+CT.RAD.BRZ ordered. EDMS EDMS
[2025-03-09] MEDS ORDERED: AMOX/K CLAV 875 MG TAB ONE (01:47)
--- NOTE | 2025-03-09 02:17 | RAD REPORT ---
EXAM: CT Abdomen and Pelvis Without Intravenous Contrast CLINICAL HISTORY: The patient is 64 years old and is Female; ABD PAIN TECHNIQUE: Axial computed tomography images of the abdomen and pelvis without intravenous contrast. Sagittal and coronal reformatted images were created and reviewed. This CT exam was performed using one or more of the following dose reduction techniques: automated exposure control, adjustment of the m A and/or kV according to patient size, and/or use of iterative reconstruction technique. COMPARISON: No relevant prior studies available. FINDINGS: LUNG BASES: Unremarkable. No mass. No consolidation. MEDIASTINUM: A small hiatal hernia is present. ABDOMEN: LIVER: Homogeneous without focal mass. GALLBLADDER AND BILE DUCTS: The gallbladder is not seen and is likely surgically absent. PANCREAS: Unremarkable. No ductal dilation. SPLEEN: Unremarkable. ADRENALS: Unremarkable. No mass. KIDNEYS AND URETERS: No obstructing stones. No hydronephrosis. No perinephric fluid. STOMACH AND BOWEL: Stomach is minimally distended with food contents. The small bowel is normal i n caliber. Minimal stool is noted throughout the colon. There is no mucosal thickening or evidence of obstruction. PELVIS: APPENDIX: The appendix is normal in caliber without surrounding inflammation. BLADDER: The bladder is incompletely distended. Bladder wall thickening specifically along the dome is noted which demonstrate a somewhat masslike appearance. Small amount of high density within the bladder is noted. No stones. REPRODUCTIVE: Unremarkable as visualized. ABDOMEN and PELVIS: INTRAPERITONEAL SPACE: Unremarkable. No free air. No significant fluid collection. BONES/JOINTS: Multilevel degenerative change of the spine is present. There is no acute fracture. SOFT TISSUES: The soft tissues are normal. VASCULATURE: Atherosclerosis of the vasculature is present. Calcified phleboliths are present w ithin the pelvis. No abdominal aortic aneurysm. LYMPH NODES: Unremarkable. No enlarged lymph nodes. IMPRESSION: Bladder wall thickening specifically along the dome with a somewhat masslike appearance. There is a lso a hyperattenuating collection near the dome. Findings are concerning for the possibility of bladder mass and possible blood products. Further evaluation with direct visualization is recommended and correlation laboratory values. Electronically signed by: Antonia Fernandez MD 03/09/2025 01:05 AM CDT RP Due to temporary technical issues with the PACS/Coubic reporting system, reports are being ana d by the in-house radiologist without review as a courtesy to ensure prompt reporting the interpreting radiologist is fully responsible for the content of the report. Transcribed Date/Time: 03/09/2025 2:16 AM
[2025-03-09 02:52] VITALS: TEMP 97.4; O2SAT 100
[2025-03-09 02:54] VITALS: BP 121/79
== END 2025-03-09 01:53 | disposition home or self-care (01) ==
LOC: ER 21:27
DX: N39.0 Urinary tract infection, site not specified (principal); F17.210 Nicotine dependence, cigarettes, uncomplicated
CPT/HCPCS: 36415; 74176; 80053; 81003; 82565; 85025; 87086; 87088; 99284